=== PATIENT | male | born 1950 | race Caucasian/White ===

== ENCOUNTER 2025-07-25 08:59 | Observation (INO) ==
--- NOTE | 2025-06-26 16:09 | PAT Medication Instructions ---
Medication Instructions Date of Service June 26, 2025 Home Medications Medication Instructions Recorded meloxicam 15 mg tablet 15 mg PO DAILY PRN pain #60 tabs 07/24/21 meloxicam 15 mg tablet 15 mg PO DAILY PRN pain Mushroom Tinctures 0 drp PO DAILY coenzyme Q10 100 mg capsule (Co Q-10) 100 mg PO DAILY ergocalciferol (vitamin D2) 200 mcg/mL (8,000 unit/mL) oral drops 200 mcg PO DAILY paroxetine HCl 20 mg tablet 20 mg PO QAM ASK your surgeon for instructions meloxicam 15 mg tablet 15 mg PO DAILY PRN pain STOP taking 2 weeks before surgery (or as soon as possible if surgery is within 2 weeks) Mushroom Tinctures 0 drp PO DAILY coenzyme Q10 100 mg capsule (Co Q-10) 100 mg PO DAILY DO NOT take the morning of surgery ergocalciferol (vitamin D2) 200 mcg/mL (8,000 unit/mL) oral drops 200 mcg PO DAILY Take morning of surgery With a small sip of water, OTHERWISE NOTHING TO EAT OR DRINK AFTER MIDNIGHT: paroxetine HCl 20 mg tablet 20 mg PO QAM Other Notes If you have any questions please call us at [phone] or [phone] or [phone] or [phone]
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
--- NOTE | 2025-07-17 17:05 | History & Physical Report ---
Date of Service July 17, 2025 Assessment & Plan (1) Bilateral primary osteoarthritis of knee: 74-year-old very active gentleman with bilateral knee DJD. He has failed conservative. He would like to proceed with left total knee replacement. Plan: We will take him to the operating room. We will do a left knee replacement. The risks and benefits the replacement were explained. The patient understands. Informed consent was obtained. He is planned to be discharged to home. Will use splint for DVT prophylaxis. (2) Sleep apnea: (3) BPH (benign prostatic hyperplasia): (4) Anxiety: History of Present Illness Chief Complaint: Bilateral knee pain discomfort left side greater than the right.. Primary Care Provider: Anai Vasquez . The patient is a 74-year-old very active gentleman and long-term patient of mine presents for further management of his knees at this time. He is very active gentleman used to run triathlons on a regular basis. Over the past 5 years he developed increased pain discomfort in both knees. The left knee is a bit worse than the right. He has been through extensive conservative treatment which just does not help much anymore. Is having trouble maintaining an active lifestyle. He does look to get his knees fixed. The patient does have a history of relatively recent Lyme disease. He was treated with IV antibiotics. He had labs that show he has recovered from this. Allergies Allergy/AdvReac Type Severity Reaction Status Date / Time No Known Allergies Allergy Verified 06/26/25 09:01 Home Medications Medication Instructions Recorded Confirmed Type meloxicam 15 mg tablet 15 mg PO DAILY PRN pain #60 tabs 07/24/21 06/26/25 Rx Mushroom Tinctures 0 drp PO DAILY 06/26/25 06/26/25 History coenzyme Q10 100 mg capsule (Co 100 mg PO DAILY 06/26/25 06/26/25 History Q-10) ergocalciferol (vitamin D2) 200 200 mcg PO DAILY 06/26/25 06/26/25 History mcg/mL (8,000 unit/mL) oral drops paroxetine HCl 20 mg tablet 20 mg PO QAM 06/26/25 06/26/25 History Past Med/Surg History Problem List Bilateral primary osteoarthritis of knee History of bursectomy Encounter for pre-operative examination Olecranon bursitis, right elbow Right elbow pain Fracture of right olecranon process Medical History History of anesthesia reaction pt states "he had a spinal at one point (right knee surgery around 1999) and he had a huge tremendous headache for weeks/months after that, also, first few days after that anesthesia he was unable to urinate for 2 days" Osteoarthritis Abdominal hernia small (above umbilical area) Prostate cancer - "microscopic" > just monitoring (dx around 2021) Sleep apnea non-compliant with device BPH (benign prostatic hyperplasia) Anxiety Surgical History Hx of bursectomy rt. elbow History of cataract surgery bilat Hx of hand surgery (1969) fx with repair History of colonoscopy (2019) Melissa teeth extracted H/O arthroscopic knee surgery bilat Family History Other No pertinent family history Social History Smoking Status: Never smoker Second Hand Exposure: No; Do You Dip or Chew Tobacco: No; Hx Alcohol Use: Yes Alcohol type: beer and wine Hx Substance Use: Yes Last Used Substance Other:: used medical marijuana years ago, had used occasional for pain Preferred Language: Polish Communication Ability: Effective Color Technician Required: No Beliefs That Will Affect Care: None marital status: Current Living Situation: Spouse current occupational status: retired current occupation: Retired high school coach Feels Safe at Home: Yes Physical Activity Frequency: 3-4 Times per Week Physical Activity Frequency Comment: Very active including trail running and cycling Assistive Devices: Glasses Review of Systems All systems reviewed & are unremarkable except as noted in HPI & below. Physical Exam . Physical examination is a pleasant middle-age male. Looks younger than stated age. Examination of both knees reveal patient ambulates independently. Examination of the left knee reveals varus alignment to his knee please get bony perching medially. He has a bit of a varus thrust with weightbearing. Range of motion is 5-1 20. No instability. No pain with hip motion. Examination of the right knee reveals a similar varus deformity to his knee. Bony hypertrophy medially. Varus thrust with weightbearing. Range of motion 5- 1 25. No instability. No pain with hip motion. Constitutional WD/WN, vitals as above Respiratory normal respiratory effort, lungs clear to auscultation Cardiovascular RRR, no murmur, no edema Gastrointestinal (Abdomen) normal bowel sounds, soft, nontender, no hepatosplenomegaly Results & Data Results & Data Laboratory Results . Diagnostic Findings . X-rays of both knees were reviewed. Advanced bilateral knee DJD. He has complete loss of the medial joint space. The left knee is a bit worse than the right. PG Care Time/CCT Total # of Minutes Spent Total Time Spent with Patient: Total time spent is greater than 50% in coordination of care (as documented) at patient's floor/unit and/or counseling patient: Coding Level of Care Code None Diagnoses Bilateral primary osteoarthritis of knee M17.0 Sleep apnea G47.30 BPH (benign prostatic hyperplasia) N40.0 Anxiety F41.9
[~2025-07-25 08:59] MED LIST: BUPIVACAINE 0.5 % 5 MG/1 ML PF 10ML VIAL ONE; ROPIVACAINE 0.5% 5 MG/ML 30 ML VIAL ONE
[2025-07-25] MEDS: LR 60ML/HR IV SCH (09:40)
[2025-07-25] MEDS: LR 500ML BOLUS, THEN 15ML/HR IV SCH (09:52)
[2025-07-25] MEDS: ACETAMINOPHEN 500 MG TAB PO SCH ×2 (09:52→16:02)
[2025-07-25] MEDS: METOCLOPRAMIDE HCL 10 MG TABLET PO SCH (09:52)
[2025-07-25] MEDS: CeleBREX 200 MG CAP PO SCH (09:52)
[2025-07-25] MEDS: dexAMETHasone**PF** 10 MG/ML VIAL IV SCH (09:52)
[2025-07-25] MEDS: FAMOTIDINE 20 MG TAB PO SCH (09:53)
[2025-07-25] MEDS ORDERED: ONDANSETRON INJ 2 MG/ML 2 ML VIAL ONE (09:54)
[2025-07-25] MEDS ORDERED: PROPOFOL IV EMULSION 10 MG/ML 20 ML VIAL IV ONE (09:54)
[2025-07-25] MEDS ORDERED: MIDAZOLAM HCL 1 MG/ML 2ML VIAL ONE (09:54)
[2025-07-25] MEDS ORDERED: LIDOCAINE 2% 2 ML VIAL/AMP(20MG/ML) INFIL ONE (09:54)
[2025-07-25] MEDS ORDERED: ONDANSETRON INJ 2 MG/ML 2 ML VIAL IV PRN ×2 (10:41→15:08)
[2025-07-25] MEDS ORDERED: ATROPINE SULFATE 0.1 MG/ML 10ML SYR IV PRN (10:41)
--- NOTE | 2025-07-25 11:17 | History & Physical Bridge Note ---
Date of Service July 25, 2025 History & Physical Bridge Note I have examined the patient, reviewed the History & Physical and in the interval since the performance of the History & Physical I have noted the following changes of clinical significance: no changes noted
[2025-07-25] MEDS: ORTHO JOINT ANESTHETIC ONE (12:24)
[2025-07-25] MEDS: ROPIV 0.5% 246mg, Ketorolac 30mg, EPINEPHrine 0.5mg in NSS INFIL SCH (12:24)
--- NOTE | 2025-07-25 13:49 | Operative Report ---
PG Post Operative Report Pre & Post Diagnosis Operation Date: 07/25/25 10:40 Pre-Op Diagnosis: Left Knee Degenerative Joint Disease Post-Op Diagnosis: Left Knee Degenerative Joint Disease I identified the patient and participated in the time-out.: Yes Procedure Operation Date: 07/25/25 10:40 Actual Procedures p Left Total Knee Arthroplasty(Left) - Titus Marie MD Surgeon Titus Marie MD Nurse Paralegal Eduardo Hanna PA-C Estimated Blood Loss 50 Findings Consistent with Post-Op Diagnosis Operative findings were advanced left knee DJD. Extensive grade 4 [id number] disease and eburnation of the entire medial compartment of his knee. Less severe changes laterally and in the patellofemoral compartment. He had a fixed varus deformity with a moderate-sized joint effusion. Specimens Left knee sent for pathology. 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 Had both of his knees scoped about 15 or 20 years ago. Over the years he developed increased. Discomfort in both knees. There is really started to limit his lifestyle. He elected proceed with left total knee arthroplasty. Description of Procedure Operative implants consist of: 1 Biomet Vanguard size 70 left posterior stabilized femoral component. 2. Biomet size 79 tibial tray. 3. 12 mm posterior stabilized polyethylene insert. 4. 34 x 8-1/2 all poly patella. The patient was taken the operating, identified, and placed on the operating table in the supine position. All contact areas were appropriately padded. IV antibiotics were provided by the anesthesia team. A spinal anesthetic and adductor canal block had been provided in the holding area. A left thigh tourniquet was then placed. The left lower extremity was then prepped and draped in usual sterile fashion. The left leg was elevated exsanguinated with use of an Esmarch and tourniquet placed at 300 mmHg. An anterior approach of the left knee was then performed to longitudinal incision centered over the patella. Sharp dissection was Through s ubcutaneous tissue down to the extensor mechanism. A medial parapatellar arthrotomy incision was made. Some subperiosteal dissection was carried out medially. The fat pad was dissected including the patella tendon. The lateral patellofemoral ligament was released. Patella subluxated laterally and the knee was flexed. The osteophytes taken off distal femur. The ACL and PCL were then released from the distal femur and the tibia subluxated anteriorly. The external tibial LYMErix then placed on the interface of the tibia and adjusted 14 mm medially. Proximal tibial cut was made to remove about a millimeter of bone at most from the most deficient aspect the medial tibial plateau. Some osteophytes taken off medially. The tibia sized to a size 79. Attention drawn the femur. The distal femur was entered with a sharp drill. Intramedullary canal was suction. The left 6 degree valgus cutting guide was placed. The distal femoral cutting block was pinned in place. Distal femoral cut was made take an additional 3 mm of bone off distal femur. The femur was then sized to a size 70. The AP cutting block was pinned parallel to the epicondylar axis which was 5 degrees of external rotation. The anterior cut, anterior chamfer, posterior cut, posterior chamfer cuts were made. The box cutting guide was placed in a just slight lateral and the box cut was made. The knee was flexed. The remnants of the medial and lateral menisci were excised. The osteophytes taken off the posterior aspect the femur. A trial femoral component was placed. The tibial tray was then pinned in Precious external rotation and the drill and stem punch used to create defect in proximal tibia for the tibial tray. Knee was then trialed and 12 mm insert fit most appropriately. Attention drawn the pa tella. The patella was Clinisol soft tissue. Patella thickness measured 25 mm in thickness was cut down to 15. Was sized to a size 34 patella. The lug holes were drilled for 34 patella. The lateral osteophytes removed. Patella button was placed. Knee was taken through range of motion patella tracked nicely with no thumbs test. Attention was then drawn to placement permanent components. Nu Prep all trial components were removed. Bone plug was placed into distal femur limit blood loss. Double batch Palacos G cement was mixed. A Biomet Vanguard size 70 left posterior by femoral component, size 79 tibial tray, a 12 mm posterior stabilized polyethylene insert, and a 34 x 8-1/2 all poly patella then cemented in place. The knee was brought out to full extension till cement hardened. Final cement check was then performed. The pericapsular tissues were injected with a total of 100 cc of Ortho mix. The patient did receive 1 g tranexamic acid. The tourniquet was then let down for final tourniquet time of 65 minutes. Hemostasis assured use electrocautery. Extensor Meclomen was then closed with combination 1 PDS suture #1 Vicryl suture in a [id number] fashion. Extensor Meclomen checked found to be intact. Subcutaneous tissue then closed with 2 Dexon suture in a buried interrupted fashion skin was closed skin noa. Leg was then cleaned and dried and a sterile dressing with Xeroform, 4 fours, sterile cast padding, Luis Armando bandage were applied. Patient then transferred to the recovery room in stable condition. Patient tolerated the procedure well and there were no complications. Eduardo Hanna, my physician employee relations assistant, was present for the entire procedure. His assistance was required for proper patient positioning, prepping and draping, surgical exposure, retraction, performed the technical details of the operation, placement implants, closure of the incision site, placement of postoperative sterile bandage. I attest to the content of the Intraoperative Record and any orders documented therein. Any exceptions are noted below.
--- NOTE | 2025-07-25 14:23 | XRay Report ---
TWO VIEWS RIGHT KNEE CLINICAL HISTORY: Postoperative examination. FINDINGS: AP and crosstable lateral portable views of the right knee are obtained. A right knee arthr oplasty is in near anatomic alignment. There has been undersurface remodeling of the patella. No acut e fracture is seen. There are expected postoperative changes around the knee including skin clips, so ft tissue edema, and subcutaneous gas. IMPRESSION: Expected postoperative changes status post right knee arthroplasty. No acute fracture is seen. ACT 112: Negative or not required by law. Electronically signed by: José Miguel Burnett M.D. 07/25/2025 2:22 PM
[2025-07-25] MEDS ORDERED: HYDROmorphone INJ 0.5 MG/0.5 ML SYR IV PRN (15:08)
[2025-07-25] MEDS ORDERED: NALOXONE HCL 0.4 MG/1 ML VIAL/CARP IV PRN (15:08)
[2025-07-25] MEDS ORDERED: MAGNESIUM HYDROXIDE SUSP 30 ML UDC PO PRN (15:08)
[2025-07-25] MEDS ORDERED: ALUMINUM/MAGNESIUM SUSP 30 ML UDC PO PRN (15:08)
[2025-07-25] MEDS ORDERED: METOCLOPRAMIDE HCL INJ 5 MG/ML 2 ML VIAL IV PRN (15:08)
[2025-07-25] MEDS: SODIUM CHLORIDE 0.9% 1,000 ML IV SCH (16:03)
[2025-07-25] MEDS: KETOROLAC TROMETHAMINE 15 MG/ML VIAL IV SCH (16:04)
[2025-07-25] MEDS: TRIMETHOPRIM/POLYMYXIN B OPB SCH (16:35)
[2025-07-25] MEDS: ASCORBIC ACID 500 MG TAB PO SCH (17:32)
[2025-07-25] MEDS: TRANEXAMIC ACID / 0.7% NACL 1,000 MG/100 ML BAG IV SCH (19:27)
[2025-07-25 20:02] VITALS: RESP 16
[2025-07-25] MEDS: DOCUSATE SODIUM 100 MG CAP PO SCH (20:19)
[2025-07-25] MEDS: SENNA 8.6 MG TAB PO SCH (20:19)
[2025-07-25] MEDS: ASPIRIN 81 MG ECTAB PO SCH (20:19)
[2025-07-25] MEDS ORDERED: SENNA 8.6 MG TAB PO SCH (21:00)
--- NOTE | 2025-07-26 08:09 | Orthopedic Progress Note ---
Date of Service July 26, 2025 Assessment & Plan (1) Status post total left knee replacement: * Continue Current Treatment * Disposition: home * Daily treatment: Physical Therapy/ Occupational Therapy per protocol * Weight bearing status: WBAT * Continue to monitor for ABLA * Pain control * DVT prophylaxis, ASA * Office/hospital f/u 2 weeks for progress check and staple/suture removal * Plan for discharge today pending PT/OT clearance Subjective .Active Problems: S/p left TKA POD 1 74 y/o male s/p left TKA. Doing well overall, pain managed and improved function. Denies fever/chills, chest pain/SOB, nausea/vomiting. Otherwise no complaints. Review of Systems All systems reviewed & are unremarkable except as noted in HPI & below. Physical Exam . * General: Alert and oriented, no acute distress * Constitutional: well-developed, well-nourished. * Respiratory: Normal respiratory effort, no distress * Gastrointestinal: No tenderness to palpation, no rigidity or guarding. * Skin: No rash or lesion. * Neurologic: Grossly normal * Musculoskeletal: left knee surgical dressing CDI, not removed for exam. Otherwise no obvious deformity or overlying skin changes RLE. Diffuse TTP distal thigh and knee region. Otherwise no specific tenderness of proximal thigh, lower leg, foot/ankle. AROM knee flexion 90 degrees. AROM foot/ankle intact. Sensation intact plantar/dorsal foot. Brisk capillary refill. Results & Data Results & Data Laboratory Results . Diagnostic Findings . Knee X-Ray 07/25/25 13:43 TWO VIEWS RIGHT KNEE CLINICAL HISTORY: Postoperative examination. FINDINGS: AP and crosstable lateral portable views of the right knee are obtained. A right knee arthroplasty is in near anatomic alignment. There has been undersurface remodeling of the patella. No acute fracture is seen. There are expected postoperative changes around the knee including skin clips, soft tissue edema, and subcutaneous gas. IMPRESSION: Expected postoperative changes status post right knee arthroplasty. No acute fracture is seen. ACT 112: Negative or not required by law. Electronically signed by: José Miguel Burnett M.D. 07/25/2025 2:22 PM PG Care Time/CCT Total # of Minutes Spent Total Time Spent with Patient: Total time spent is greater than 50% in coordination of care (as documented) at patient's floor/unit and/or counseling patient: Coding Level of Care Code 65754 Post Operative Follow-Up Diagnoses Status post total left knee replacement Z96.659
[2025-07-26 08:14] LABS: Hematocrit (blood only) 33.7 % (42.0-52.0); Hemoglobin 12.1 g/dl (14.0-18.0); Mean Corpuscular Hemoglobin 33.2 pg (25.0-34.0); Mean Corpuscular Volume 92.3 fL (80.0-100.0); Platelet Count 222 K/uL (130-400); RDW Standard Deviation 42.7 fL (36.4-46.3); Red Blood Count 3.65 M/uL (4.70-6.10); White Blood Count 9.67 K/ul (4.8-10.8)
[2025-07-26] MEDS: dexAMETHasone 10 MG in SYRINGE 0 ML IV SCH (08:22)
[2025-07-26] MEDS: MULTIVITAMIN TAB PO SCH (08:23)
[2025-07-26] MEDS: TAMSULOSIN HCL 0.4 MG CAP PO SCH (08:23)
[2025-07-26 08:38] LABS: Anion Gap 5.0 (3-11); Blood Urea Nitrogen 22.0 mg/dl (6-23); Calcium 8.4 mg/dl (8.6-10.3); Carbon Dioxide 26.0 mmol/L (21-32); Chloride 107.0 mmol/L (98-107); Creatinine Clr Calc Pharmacy 63.0 ml/min; Glucose 102.0 mg/dl (70-99(Fasting)); Potassium 3.8 mmol/L (3.5-5.1); Sodium 138.0 mmol/L (136-145)
[2025-07-26] MEDS ORDERED: ERGOCALCIFEROL PO SCH (09:00)
[2025-07-26] MEDS ORDERED: NON-FORMULARY MEDICATION (Coenzyme Q10 [Co Q-10] 100 mg Capsule) PO SCH (09:00)
[2025-07-26 11:23] VITALS: BP 128/77; PULSE 72; TEMP 98.6; O2SAT 95
--- NOTE | 2025-07-28 07:04 | Anesthesiology Progress Note ---
Date of Service July 25, 2025. late note submission Anesthesia Post Procedure Pain Intensity Left Knee: Pain Intensity: 3 Transfer of Care Handoff Completed per policy Notes Mental Status: alert / awake / arousable Patient Amnestic to Procedure: Yes Nausea / Vomiting: adequately controlled Pain: adequately controlled Airway Patency, RR, SpO2: stable & adequate BP & HR: stable & adequate Hydration State: stable & adequate Neuraxial Anesthesia: was administered Anesthetic Complications: no major complications apparent
== END 2025-07-26 16:38 | disposition home health service (06) ==
LOC: 3N 08:59 → ASU 08:59